=== PATIENT | male | born 1970 ===

== ENCOUNTER 2025-04-25 15:15 | Outpatient (AMB) | payer MEDICAID, SELFPAY ==
--- NOTE | 2025-04-25 15:28 | A.OFFPC_ITS ---
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 Management Consultant Required: No Accompanied by: Self / Same As Patient Allergies No Known Allergies Allergy (Verified 04/25/25 15:30) Tobacco use date assessed: 04/25/25 Dental Screening Dental Screen Date: 04/25/25 Did you have a dental visit in the last 12 months?: Yes Did you have a dental problem in the last 6 months where you did not have access to dental care?: No Was dental information given to patient?: Patient has dentist HPI HPI Comments History of Present Illness Details History of Present Illness The patient is a 54-year-old male presenting with management of diabetes mellitus, depression, and erectile dysfunction, along with preventative care screenings. Diabetes mellitus: - The patient has a history of diabetes mellitus diagnosed before 2019, currently not on medication. - Regular monitoring of Hemoglobin A1c a nd cholesterol levels is planned. Depression: - The patient reports a history of depre ssion and has previously received therapy. - Therapy sessions were discontinued due to circumstances but plans to resume therapy are in place. Erectile dysfunction: - The patient reports erectile dysfuncti on following a vasectomy. Tobacco use disorder: - The patient has a history of smoking b ut quit smoking cigarettes a month ago. Cannabis use disorder: - The patient has a history of cannabis use but has stopped due to lack of perceived benefit. Preventative care: - A CT scan for cancer screening is plan dandre due to the patient's smoking history. Review of Systems - General: Reports difficulty sleeping a nd frequent nocturia. - Genitourinary: Reports erectile dysfun ction, denies dysuria. - Dermatological: Reports dry skin on lo wer extremities. 10-point ROS reviewed and negative excep t as noted in HPI Past Medical History - Diabetes mellitus diagnosed before 201 9, currently not on medication. - History of depression with previous erapy sessions. - Erectile dysfunction following vasecto my. - History of tobacco use, quit smoking a month ago. - History of cannabis use, recently stop ped. Health Maintenance - HIV screening planned. - Hepatitis B and C screening planned. - Colonoscopy completed. - CT scan for cancer screening planned d ue to smoking history. Physical Exam General: Well-appearing, in no acute distress. Vital signs: Within normal limits. HEENT: Normocephalic, atraumatic. PERRLA, EOMI. Conjunctiva clear, sclera anicteric. Oropharynx clear, mucous membranes moist. TMs intact bilaterally. Neck: Supple, no lymphadenopathy, no thyromegaly, no JVD or carotid bruits. Cardiovascular: RRR, normal S1/S2, no murmurs, rubs, or gallops. Peripheral pulses 2+ and symmetric. No edema. Respiratory: Lungs clear to auscultation bilaterally, no wheezes, rales, or rhonchi. Normal effort. Abdomen: Soft, non-tender, non-distended. Normoactive bowel sounds. No hepatosplenomegaly, no masses. MSK: Full range of motion, no joint swelling or deformity. Normal gait. Skin: Warm, dry, intact. No rashes, lesions, or pallor. Dry skin noted on lower extremities. Neuro: Alert and oriented x3. Cranial nerves II-XII intact. Strength 5/5 throughout. Sensation intact. Reflexes 2+ symmetric. Normal coordination and gait. Psych: Appropriate mood and affect. Normal judgment and insight. History of depression, previously treated with therapy. Plan 1. Diabetes Mellitus - Plan to monitor Hemoglobin A1c and cho lesterol levels regularly. - Referral to life skills educator for comp rehensive management. 2. Depression - Plan to resume therapy sessions with p revious therapist or consider referral to another provider. 3. Erectile Dysfunction - Discussed potential impact of vasectom y on erectile function, consider further evaluation if symptoms persist. 4. Tobacco Use Disorder - Acknowledged recent cessation of smoki ng, encouraged continued abstinence. 5. Cannabis Use Disorder - Acknowledged cessation of cannabis use , encouraged continued abstinence. 6. Preventative Care - Scheduled screenings for HIV, Hepatiti s B and C, and CT scan for cancer screening. Discussion Notes During the visit, we discussed the management of diabetes mellitus, including regular monitoring of Hemoglobin A1c and cholesterol levels. I recommended resuming therapy sessions for depression and acknowledged the patient's recent cessation of smoking and cannabis use. We also planned preventative screenings, including HIV, Hepatitis B and C, and a CT scan for cancer screening due to the patient's smoking history. Patient was informed and verbally consented to the use of an ambient scribe for clinic note documentation during this visit. Patient Instructions - Monitor blood sugar levels regularly a nd follow up with life skills educator. - Resume therapy sessions for depression or seek referral if needed. - Continue abstaining from smoking and c annabis use. - Complete scheduled screenings for HIV, Hepatitis B and C, and CT scan for cancer screening. [facility] Medical History (Updated 04/25/25 @ 16:03 by Enzo Howard MD) History of nicotine use Encounter for screening, unspecified Family History (Updated 04/25/25 @ 15:34 by Tanner Macdonald MA) Father Diabetes Heart attack High blood pressure Mother Diabetes High blood pressure Parkinson disease Social History (Updated 04/25/25 @ 15:35 by Tanner Macdonald MA) Housing: Apartment Alcohol intake: current Alcohol intake frequency: does not drink Patient Tobacco Use Status: Former Tobacco user service: No Current occupational status: disabled Vision needs: Yes (rx glasses) Questionnaire PHQ-9 Over the last 2 weeks, how often have you been bothered by any of the following problems? 1. Little interest or pleasure in doing things: several days 2. Feeling down, depressed, or hopeless: not at all 3. Trouble falling or staying asleep, or sleeping too much: not at all 4. Feeling tired or having little energy: more than half the days 5. Poor appetite or overeating: nearly every day 6. Feeling bad about yourself - or that you are a failure or have let yourself or your family down: not at all 7. Trouble concentrating on things, such as reading the newspaper or watching television: several days 8. Moving or speaking so slowly that other people could have noticed. Or the opposite - being so fidgety or restless that you have been moving around a lot more than usual: not at all 9. Thoughts that you would be better off or of hurting yourself in some way: not at all Total score: 7 Source: Developed by Drs. Usman Romano, Teresa Wahl, Kevin Jones and colleagues, with an educational chiara from [employer]. Thrive Questionnaire Date Thrive assessed: 04/18/25 I am a: Patient What is your living situation today?: I choose not to answer this question Within the past 12 months, did the food you bought not last and you didn't have the money to get more?: Sometimes True Within the past 12 months, did you worry whether your food would run out before you got money to buy more?: Sometimes True Do you have trouble paying for medicines?: Yes Do you have trouble getting transportation to medical appointments?: Yes Do you have trouble paying your heating and electricity bill?: Yes Do you have trouble taking care of your child, family member or friend?: No Do you have trouble with day-to-day activities such as bathing, preparing meals, shopping, managing finances, etc.?: I choose not to answer this question Are you currently unemployed and looking for a job?: No Are you interested in more education?: No Please select the resources that you would like help with: Housing/Longterm and Transportation Currently or been in a relationship where the following occur: No concerns reported THRIVE Score: 4 AUDIT C Alcohol Use Questionnaire (AUDIT-C) 1. How often do you have a drink containing alcohol?: Never 3. How often do you have six or more drinks on one occasion?: Never Total Score: 0 MARIBEL-7 AMB Questionnaire MARIBEL-7 Feeling nervous, anxious, or on edge: 1 = Several days Not being able to stop or control worryin = Not at all Worrying too much about different things: 0 = Not at all Trouble relaxin = Several days Being so restless that it is hard to sit still: 0 = Not at all Becoming easily annoyed or irritable: 0 = Not at all Feeling afraid as if something awful might happen: 0 = Not at all Total MARIBEL-7 score (0-4 normal; 5-9 mild; 10-14 moderate; 15-21 severe): 2 Source: Developed by Drs. Usman Romano, Teresa Wahl, Kevin Jones and colleagues, with an educational chiara from [employer]. Physical exam (Primary Care) Vital Signs: Last Vital Signs Temp 98.3 F 04/25/25 15:29 Pulse 79 04/25/25 15:29 Resp 16 04/25/25 15:29 BP 126/70 04/25/25 15:29 Pulse Ox 98 04/25/25 15:29 Oxygen Delivery Method Room Air 04/25/25 15:29 BMI result Body Mass Index 30.1 Tobacco/Smoking Status: Tobacco use Status Tobacco use date assessed 04/25/25 04/25/25 15:40 Patient Tobacco Use Status Former Tobacco user 04/25/25 15:40 PHQ-9: PHQ-9 Score PHQ-9: Total score 7 04/25/25 15:40 Thrive Assessment: Date of Thrive Assessment Date Thrive assessed 04/18/25 04/25/25 15:40 Currently or been in a relationship where the following occur: No concerns reported Coding Level of Care Code New Pt Level 3 (83510) Diagnoses Establishing care with new doctor, encounter for Z76.89 Class 1 obesity E66.811 History of nicotine use Z87.891 Encounter for screening, unspecified Z13.9 History of diabetes mellitus Z86.39 Screening for hypertension Z13.6 Screening for lipoid disorders Z13.220 Screening for depression Z13.31 Screening for HIV (human immunodeficiency virus) Z11.4 Routine screening for STI (sexually transmitted infection) Z11.3 History of vasectomy Z98.52 Assessment & Plan Assessment & Plan (1) Establishing care with new doctor, encounter for: Code(s): Z76.89 - Persons encountering health services in other specified circumstances (2) Class 1 obesity: Code(s): E66.811 - Obesity, class 1 (3) History of nicotine use: Code(s): Z87.891 - Personal history of nicotine dependence Category: Medical (4) Encounter for screening, unspecified: Code(s): Z13.9 - Encounter for screening, unspecified Category: Medical (5) History of diabetes mellitus: Code(s): Z86.39 - Personal history of other endocrine, nutritional and metabolic disease (6) Screening for hypertension: Code(s): Z13.6 - Encounter for screening for cardiovascular disorders (7) Screening for lipoid disorders: Code(s): Z13.220 - Encounter for screening for lipoid disorders (8) Screening for depression: Code(s): Z13.31 - Encounter for screening for depression (9) Screening for HIV (human immunodeficiency virus): Code(s): Z11.4 - Encounter for screening for human immunodeficiency virus [HIV] (10) Routine screening for STI (sexually transmitted infection): Code(s): Z11.3 - Encounter for screening for infections with a predominantly sexual mode of transmission (11) History of vasectomy: Code(s): Z98.52 - Vasectomy status Plan Orders: Orders Complete Blood Count Auto Diff Today Z13.9 - Encounter for screening, unspecified, Z76.89 - Persons encountering health services in other specified circumstances Comprehensive Met. Panel Today Z13.9 - Encounter for screening, unspecified, Z76.89 - Persons encountering health services in other specified circumstances Hemoglobin A1c Today Z13.9 - Encounter for screening, unspecified, Z76.89 - Persons encountering health services in other specified circumstances Hepatitis B Surface Antigen Today Z13.9 - Encounter for screening, unspecified, Z76.89 - Persons encountering health services in other specified circumstances Lipid Panel Today Z.9 - Encounter for screening, unspecified, Z76.89 - Persons encountering health services in other specified circumstances Chlamydia Species Ab Panel Today Z13.9 - Encounter for screening, unspecified, Z76.89 - Persons encountering health services in other specified circumstances CT lung screening Today Z87.891 - Personal history of nicotine dependence Hepatitis B Surface Antibody Today Z13.9 - Encounter for screening, unspecified, Z76.89 - Persons encountering health services in other specified circumstances Hepatitis C Antibody Today Z13.9 - Encounter for screening, unspecified, Z76.89 - Persons encountering health services in other specified circumstances HIV Ab/Ag Today Z13.9 - Encounter for screening, unspecified, Z76.89 - Persons encountering health services in other specified circumstances CT NG by PCR Urine Today Z13.9 - Encounter for screening, unspecified, Z76.89 - Persons encountering health services in other specified circumstances Syphilis Screen Today Z13.9 - Encounter for screening, unspecified, Z76.89 - Persons encountering health services in other specified circumstances UA CC w/rflx Micro + Cult Today Z13.9 - Encounter for screening, unspecified, Z76.89 - Persons encountering health services in other specified circumstances Vitamin B12 and Folate Today Z13.9 - Encounter for screening, unspecified, Z76.89 - Persons encountering health services in other specified circumstances Vitamin D 1,25 dihydroxy Today Z13.9 - Encounter for screening, unspecified, Z76.89 - Persons encountering health services in other specified circumstances
[2025-04-25 15:29] VITALS: BP 126/70; PULSE 79; RESP 16; TEMP 36.8; O2SAT 98; BMI 30.1
--- OUTSIDE RECORDS SUMMARY | 2025-04-25 16:34 | XMS_ITS | Clinical Summary ---
Author Organization [facility] Address [address] [place] [address] Care Team Providers Care Pneumatic Jacketer Name Role Phone Unavailable Primary Care Provider Unavailabl e Source Comments PLEASE NOTE, if this patient is a minor, it may be UNLAWFUL to discuss sensitive information that is contained in these records (such as FAMILY PLANNING, MENTAL HEALTH or SUBSTANCE ABUSE) with the minor patient's parent or other person without the patient's specific authorization.[facility] Social History Tobacco Use Types Packs/Day Years Used Date Smoking Tobacco: Never Assessed Social Connections Answer Date Recorded Social Connections and Isolation 0 09/15/2019 Financial Resource Strain Answer Date R ecorded Financial Resource Strain 0 2019 Stress Answer Date Recorded Stress 0 09/15/2019 Physical Activity Answer Date Recorded Physical Activity 0 09/15/2019 Food Insecurity Answer Date Recorded Food 0 09/15/2019 Transportation Needs Answer Date Record ed Transportation 0 09/15/2019 Housing Stability Answer Date Recorded Housing 0 09/15/2019 Safety and Environment Answer Date Felix rded Safety 0 09/15/2019 Utilities Answer Date Recorded Utilities 0 09/15/2019 Employment Answer Date Recorded Employment 0 09/15/2019 Sex and Gender Information Value Date Recorded Sex Assigned at Not on file Legal Sex Male 11:50 AM PST Gender Identity Not on file Sexual Orientation Not on file Plan of Treatment Not on file [place] [facility] SAFETY NET DENTAL [facility] DENTAL
--- OUTSIDE RECORDS SUMMARY | 2025-04-25 16:34 | XMS_ITS | Clinical Summary ---
[facility] Address [address] [place] [address] Care Team Providers Care Back Maker Name Role Phone Kiran Hair MD Primary Care Provider Surgical History Surgery Date Site/Laterality Comments OTHER SURGICAL HISTORY PROCEDURE: LA CIRCUMCISION AGE >28 DAYS Medical History Medical History Date Comments Unspecified essential hypertension DX:Unspecified essential hypertension DM (diabetes mellitus), type 2 with renal complications (CMS/HCC V24, CMS/HCC V28) 03/01/2013 DX:DM (diabetes mellitus), t ype 2 with renal complications ([facility]); COMMENT: 02/02/2013. Microalbumin 54. DM (diabetes mellitus), type 2 with peripheral vascular complications (CMS/HCC V24, CMS/HCC V28) 04/21/2012 DX:DM (diabetes mellitus), type 2 with peripheral vascular complications (HCC) Type 2 diabetes mellitus wit h eye manifestations (CMS/HCC V24, CMS/HCC V28) 08/25/2016 DX:Type 2 diabetes mellitus with eye manifestations (HCC) Family History Medical History Relation Name Comments No Known Problems Brother 1 No Known Problems Brother 2 No Known Problems Brother 3 No Known Problems Brother 4 Diabetes Brother 5 Diabetes Brother 6 No Known Problems Daughter 1 No Known Problems Daughter 2 Diabetes Father at 78, res piratory failure Diabetes Mother No Known Problems Sister No Known Problems Son 1 No Known Problems Son 2 Blindness Neg Hx Cataracts Neg Hx Glaucoma Neg Hx Macular degeneration Neg Hx Strabismus Neg Hx Relation Name Status Comments Brother 1 Alive Brother 2 Alive Brother 3 Alive Brother 4 Alive Brother 5 Alive Brother 6 Alive Daughter 1 Alive Daughter 2 Alive Father Mother Alive Sister Alive Son 1 Alive Son 2 Alive Social History Tobacco Use Types Packs/Day Years Used Date Smoking Tobacco: Former Cigarettes Q uit: 05/04/2018 Smokeless Tobacco: Never Alcohol Use Standard Drinks/Week Comments No 0 (1 standard drink = 0.6 oz pur e alcohol) Sex and Gender Information Value Date Recorded Sex Assigned at Not on file Legal Sex Male 11:35 PM EST Gender Identity Not on file Sexual Orientation Not on file Obstetrics History Plan of Treatment Health Maintenance Due Date Last Done Comments Diabetes: Annual GFR (Glomer ular Filtration Rate) 1969 Diabetes: Annual Foot Exam 1979 Diabetes: Annual Retina Eye Exam 1979 DTaP,Tdap,and Td Vaccines (1 - Tdap) 1988 Hepatitis B Vaccines (1 of 3 - 19+ 3-dose series) 1988 Pneumococcal Vaccine: 50+ Ye ars (2 of 2 - PCV) 2019 05/11/2018 Zoster Vaccines (1 of 2) 2019 Cholesterol Screening (Lipid Panel) 07/05/2022 Colorectal Cancer Screening: Colonoscopy 07/05/2022 HIV Screening 07/05/2022 Hepatitis C Screening 07/05/2022 Social Influencers of Health Screening 07/05/2022 Diabetes: Annual Urine Albumin-Creatinine Ratio (uACR) 07/11/2022 Diabetes: Blood Sugar Contro l Test (HGBA1C) 07/11/2022 Hypertension/CHF/CAD Annual BMP Blood Test 07/11/2022 Depression Screening 07/27/2024 COVID-19 Vaccine ( - 2023-2 5 season) 2025 Influenza Vaccine (#1) 2025 HIB Vaccines Aged Out No longer eligi ble based on patient's age to complete this topic HPV Vaccines Aged Out No longer eligi ble based on patient's age to complete this topic Hepatitis A Vaccines Aged Out No long er eligible based on patient's age to complete this topic IPV Vaccines Aged Out No longer eligi ble based on patient's age to complete this topic MMR Vaccines Aged Out No longer eligi ble based on patient's age to complete this topic Meningococcal ACWY Vaccine Aged Out N o longer eligible based on patient's age to complete this topic Meningococcal B Vaccine Aged Out No l onger eligible based on patient's age to complete this topic RSV Immunization Patients Un yuliya 20 months Aged Out No longer eligible b ased on patient's age to complete this topic Varicella Vaccines Aged Out No longer eligible based on patient's age to complete this topic Care Teams Back Maker Relationship Specialty Start Date End Date Kiran Hair MD PCP - General Internal Medicine 12/22/17
== END 2025-04-25 16:09 | disposition home or self-care (01) ==
LOC: HO.HMCFMS 15:15
PROVIDERS: PCP Student in an Organized Health Care Education/Training Program; Visit Provider Student in an Organized Health Care Education/Training Program
DX: Z00.00 Encounter for general adult medical examination without abnormal findings (principal); E66.811 Obesity, class 1; E11.9 Type 2 diabetes mellitus without complications

== ENCOUNTER 2025-04-25 15:15 | Outpatient (REF) | payer MEDICAID, SELFPAY ==
[2025-04-25 18:04] LABS: MANUAL DIFF FLAG NO
[2025-04-25 18:12] LABS: Hematocrit 41.7 % (42.0-52.0); Hemoglobin 15.1 g/dl (14.0-18.0); Imm Gran Abs Auto 0.04 X10*3/uL (0.00-0.03); Imm Gran Pct Auto 0.4 % (0.0-0.4); Lymphocytes Absolute Auto 4.1 X10*3/uL (1.2-4.9); Mean Corpuscular HGB Conc 36.2 g/dl (31.0-36.0); Mean Corpuscular Hemoglobin 32.3 pg (27.0-33.0); Mean Corpuscular Volume 89.3 fL (80.0-98.0); NRBC Abs Auto 0.000 X10*3/uL (0.0-0.012); NRBC Pct Auto 0.0 /100WBC (0.0-0.2); Platelet Count 307 X10*3/uL (160-400); Red Blood Count 4.67 X10*6/uL (4.60-5.80); White Blood Count 10.9 X10*3/uL (4.8-10.8)
[2025-04-25 18:19] LABS: Total Hemoglobin (HGBA1C) 3900.9172 umol/L
[2025-04-25 18:36] LABS: Appearance Urine Clear; Glucose Urine UA >=1000 mg/dL (Negative); PH 6.0 (5.0-9.0); Specific Gravity - Urine >= 1.030 (1.005-1.025); UMIC TRIGGER UACC YES
[2025-04-25 18:47] LABS: Alanine Aminotransferase 39 U/L (0-40); Albumin Level 4.3 g/dL (3.5-5.0); Alkaline Phosphatase 70 U/L (39-117); Anion Gap 14 (12-20); Aspartate Amino Transferase 24 U/L (5-37); Blood Urea Nitrogen 14 mg/dL (9-16); Calcium 10.0 mg/dL (8.4-10.2); Carbon Dioxide 27 mmol/L (22-29); Chloride 97 mmol/L (96-108); Cholesterol 345 mg/dL (<200); Estimated Glomerular Filt Rate > 60; HDL Cholesterol 42 mg/dL (>40); Potassium 4.0 mmol/L (3.3-5.1); Sodium 134 mmol/L (135-145); Total Protein 8.0 g/dL (6.5-8.0); Triglycerides 551 mg/dL (<150)
[2025-04-25 19:10] LABS: Folate > 20.0 ng/mL (> or = 4.0); Vitamin B12 767 pg/mL (200-900)
[2025-04-26 04:57] LABS: Syphilis Screen Nonreactive (Nonreactive)
[2025-04-26 05:34] LABS: HBS Num1 0.04 mIU/mL (0-7.99); HBsAGNum1 0.33 S/CO (0.00-0.99); HIV Num 1 0.04 S/CO (0.00-0.99); Hepatitis B Surface Antigen Negative (Negative); ~HepC Num1 0.12 S/CO (0.00-0.79); ~Hepatitis B Surface Antibody NONREACTIVE (Nonreactive); ~Hepatitis C Antibody Nonreactive (Nonreactive)
[2025-04-26 11:50] LABS: CT PCR Urine NOT DETECTED (Not Detect.); NG PCR Urine NOT DETECTED (Not Detect.)
[2025-04-29 11:38] LABS: Chlamydia Trachomatis IgA <1:16 titer (<1:16)
[2025-04-29 14:24] LABS: VITAMIN D (1,25 OH) D3 54 pg/mL; Vit D (1,25-Dihydroxy) Total 54 pg/mL (18-72); Vitamin D (1,25 OH) D2 <8 pg/mL
== END 2025-04-25 15:16 | disposition home or self-care (01) ==
LOC: HO.HKASLDS 15:15
PROVIDERS: PCP Student in an Organized Health Care Education/Training Program; Visit Provider Student in an Organized Health Care Education/Training Program
DX: Z76.89 Persons encountering health services in other specified circumstances (principal); Z13.9 Encounter for screening, unspecified; Z13.6 Encounter for screening for cardiovascular disorders; Z13.220 Encounter for screening for lipoid disorders; Z13.31 Encounter for screening for depression; Z11.4 Encounter for screening for human immunodeficiency virus [HIV]; Z11.3 Encounter for screening for infections with a predominantly sexual mode of transmission; E66.811 Obesity, class 1; Z87.891 Personal history of nicotine dependence; Z86.39 Personal history of other endocrine, nutritional and metabolic disease; Z98.52 Vasectomy status; Z68.30 Body mass index [BMI] 30.0-30.9, adult
CPT/HCPCS: 80053; 80061; 81001; 82607; 82652; 82746; 83036; 85025; 86631; 86632; 86706; 86780; 86803; 87340; 87389; 87491; 87591; 99386

== ENCOUNTER 2025-05-03 08:47 | Outpatient (AMB) | payer MEDICAID, SELFPAY ==
[2025-05-03 08:50] VITALS: BP 141/67; PULSE 77; RESP 16; TEMP 36.6; O2SAT 98; BMI 30.1
--- NOTE | 2025-05-03 08:50 | A.OFFPC_ITS ---
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 Diabetes Mellitus: - The patient has a history of diabetes mellitus with a hemoglobin A1c of 13.8%, indicating poor glycemic control. - The patient previously used Glipizide and Metformin but discontinued due to lifestyle changes. - The patient reports a sedentary lifest yle when not in [place], impacting diabetes management. Hyperlipidemia: - The patient has elevated triglycerides at 551 mg/dL and cholesterol at 345 mg/dL. - The patient has been prescribed fenofi brate and rosuvastatin for management. History of Smoking: - The patient has a history of smoking b ut quit one month ago. Review of Systems 10-point ROS reviewed and negative excep t as noted in HPI Past Medical History - Diabetes Mellitus - Hyperlipidemia - History of Smoking Health Maintenance - Referral to die out worker for annual diab etic foot examination. - Referral to condemnation engineer for dietary m anagement of diabetes. Physical Exam General: Well-appearing, in no acute distress. Vital signs: Within normal limits. HEENT: Normocephalic, atraumatic. PERRLA, EOMI. Conjunctiva clear, sclera anicteric. Oropharynx clear, mucous membranes moist. TMs intact bilaterally. Neck: Supple, no lymphadenopathy, no thyromegaly, no JVD or carotid bruits. Cardiovascular: RRR, normal S1/S2, no murmurs, rubs, or gallops. Peripheral pulses 2+ and symmetric. No edema. Respiratory: Lungs clear to auscultation bilaterally, no wheezes, rales, or rhonchi. Normal effort. Abdomen: Soft, non-tender, non-distended. Normoactive bowel sounds. No hepatosplenomegaly, no masses. MSK: Full range of motion, no joint swelling or deformity. Normal gait. Skin: Warm, dry, intact. No rashes, lesions, or pallor. Neuro: Alert and oriented x3. Cranial nerves II-XII intact. Strength 5/5 throughout. Sensation intact. Reflexes 2+ symmetric. Normal coordination and gait. Psych: Appropriate mood and affect. Normal judgment and insight. Plan 1. Diabetes Mellitus - Initiate Metformin 1000 mg twice daily with meals. - Add Farxiga (Dapagliflozin) 10 mg nick y. - Follow-up in three months with repeat blood tests to assess glycemic control. 2. Hyperlipidemia - Prescribe Fenofibrate 1 tablet daily f or triglyceride management. - Prescribe Rosuvastatin 10 mg at night for cholesterol management. 3. History Of Smoking - Continue smoking cessation support. Discussion Notes During the visit, we discussed the management of diabetes mellitus and hyperlipidemia. I recommended starting Metformin and Farxiga for diabetes control and prescribed Fenofibrate and Rosuvastatin for lipid management. We also talked about the importance of lifestyle changes and follow-up in three months to reassess the treatment plan. Patient was informed and verbally consented to the use of an ambient scribe for clinic note documentation during this visit. Patient Instructions - Take Metformin 1000 mg twice daily wit h meals. - Take Farxiga 10 mg daily. - Take Fenofibrate 1 tablet daily and Ro suvastatin 10 mg at night. - Follow up in three months for repeat b lood tests. - Continue smoking cessation efforts. Total time spent caring for the patient today was 30 minutes. This includes time spent before the visit reviewing the chart, time spent documenting, and time spent reviewing laboratory results, diagnostic imaging, medications, performing a medically necessary evaluation, counseling on diagnoses, care coordination, ordering appropriate tests, ordering appropriate medications. [facility] Medical History (Updated 05/03/25 @ 08:16 by Enzo Howard MD) Hypertriglyceridemia Diabetes type 2 History of nicotine use Encounter for screening, unspecified Family History Father Diabetes Heart attack High blood pressure Mother Diabetes High blood pressure Parkinson disease Social History Housing: Apartment Alcohol intake: current Alcohol intake frequency: does not drink Patient Tobacco Use Status: Former Tobacco user service: No Current occupational status: disabled Vision needs: Yes (rx glasses) Questionnaire PHQ-9 Over the last 2 weeks, how often have you been bothered by any of the following problems? 1. Little interest or pleasure in doing things: not at all 2. Feeling down, depressed, or hopeless: not at all 3. Trouble falling or staying asleep, or sleeping too much: more than half the days 4. Feeling tired or having little energy: more than half the days 5. Poor appetite or overeating: not at all 6. Feeling bad about yourself - or that you are a failure or have let yourself or your family down: not at all 7. Trouble concentrating on things, such as reading the newspaper or watching television: not at all 8. Moving or speaking so slowly that other people could have noticed. Or the opposite - being so fidgety or restless that you have been moving around a lot more than usual: not at all 9. Thoughts that you would be better off or of hurting yourself in some way: not at all Total score: 4 Source: Developed by Drs. Usman Romano, Teresa Wahl, Kevin Jones and colleagues, with an educational chiara from [employer]. Thrive Questionnaire Date Thrive assessed: 05/02/25 I am a: Patient What is your living situation today?: I have a steady place to live Within the past 12 months, did the food you bought not last and you didn't have the money to get more?: Sometimes True Within the past 12 months, did you worry whether your food would run out before you got money to buy more?: Sometimes True Do you have trouble paying for medicines?: Yes Do you have trouble getting transportation to medical appointments?: No Do you have trouble paying your heating and electricity bill?: Yes Do you have trouble taking care of your child, family member or friend?: No Do you have trouble with day-to-day activities such as bathing, preparing meals, shopping, managing finances, etc.?: No Are you currently unemployed and looking for a job?: No Are you interested in more education?: No Please select the resources that you would like help with: None Currently or been in a relationship where the following occur: I choose not to answer THRIVE Score: 3 AUDIT C Alcohol Use Questionnaire (AUDIT-C) 1. How often do you have a drink containing alcohol?: Never 3. How often do you have six or more drinks on one occasion?: Never Total Score: 0 MARIBEL-7 AMB Questionnaire MARIBEL-7 Date MARIBEL - 7 assessed: 04/25/25 Feeling nervous, anxious, or on edge: 1 = Several days Not being able to stop or control worryin = Not at all Worrying too much about different things: 0 = Not at all Trouble relaxin = Not at all Being so restless that it is hard to sit still: 1 = Several days Becoming easily annoyed or irritable: 2 = More than half the days Feeling afraid as if something awful might happen: 0 = Not at all Total MARIBEL-7 score (0-4 normal; 5-9 mild; 10-14 moderate; 15-21 severe): 4 Source: Developed by Drs. Usman Romano, Teresa Wahl, Kevin Jones and colleagues, with an educational chiara from [employer]. Physical exam (Primary Care) Vital Signs: Last Vital Signs Temp 98 F 05/03/25 08:50 Pulse 77 05/03/25 08:50 Resp 16 05/03/25 08:50 BP 141/67 H 05/03/25 08:50 Pulse Ox 98 05/03/25 08:50 Oxygen Delivery Method Room Air 05/03/25 08:50 BMI result Body Mass Index 30.1 Tobacco/Smoking Status: Tobacco use Status Tobacco use date assessed 04/25/25 05/03/25 08:51 Patient Tobacco Use Status Former Tobacco user 05/03/25 08:51 PHQ-9: PHQ-9 Score PHQ-9: Total score 4 05/03/25 09:12 Thrive Assessment: Date of Thrive Assessment Date Thrive assessed 05/02/25 05/03/25 08:51 Currently or been in a relationship where the following occur: I choose not to answer Coding Level of Care Code Est Pt Level 4 (81936) Diagnoses Diabetes type 2 E11.9 Hypertriglyceridemia E78.1 Dyslipidemia E78.5 Assessment & Plan Assessment & Plan (1) Diabetes type 2: Code(s): E11.9 - Type 2 diabetes mellitus without complications Category: Medical (2) Hypertriglyceridemia: Code(s): E78.1 - Pure hyperglyceridemia Category: Medical (3) Dyslipidemia: Code(s): E78.5 - Hyperlipidemia, unspecified Plan Orders: Referrals Nurse Navigator Referral E11.9 - Type 2 diabetes mellitus without complications Ophthalmology Referral E11.9 - Type 2 diabetes mellitus without complications Podiatry Referral E11.9 - Type 2 diabetes mellitus without complications Nutrition/Dietitian Referral E11.9 - Type 2 diabetes mellitus without complications Medications: New rosuvastatin 10 mg PO DAILY 90 tabs 0RF E11.9 - Type 2 diabetes mellitus without complications fenofibrate 120 mg PO DAILY 90 tabs 0RF E78.1 - Pure hyperglyceridemia metformin 1,000 mg PO BID 180 tabs 0RF E11.9 - Type 2 diabetes mellitus without complications dapagliflozin propanediol (Farxiga) 10 mg PO DAILY 90 tabs 0RF
== END 2025-05-03 09:22 | disposition home or self-care (01) ==
LOC: HO.HMCFMS 08:48
PROVIDERS: PCP Student in an Organized Health Care Education/Training Program; Visit Provider Student in an Organized Health Care Education/Training Program
DX: E11.9 Type 2 diabetes mellitus without complications (principal); E78.1 Pure hyperglyceridemia; E78.5 Hyperlipidemia, unspecified

== ENCOUNTER → 2025-05-03 08:47 | Outpatient (BNVA) | payer MEDICAID, SELFPAY | PROVIDERS: PCP Student in an Organized Health Care Education/Training Program; Visit Provider Student in an Organized Health Care Education/Training Program | DX: E11.9 Type 2 diabetes mellitus without complications (principal); E78.1 Pure hyperglyceridemia; E78.5 Hyperlipidemia, unspecified; Z13.30 Encounter for screening examination for mental health and behavioral disorders, unspecified | CPT/HCPCS: 99212 ==